=== PATIENT | female | born 1995 | race African-American/Black ===

== ENCOUNTER 2023-04-22 09:29 | Outpatient (REF) | payer OTHER, SELFPAY ==
[2023-04-22 11:29] LABS: Appearance Urine Clear; Color Urine Yellow; Glucose Urine UA Negative (Negative); Leukocyte Esterase Urine Small (1+) (Negative); Nitrite Urine Negative (Negative); PH 8.5 (5.0-9.0); Specific Gravity - Urine 1.015 (1.005-1.025); UMIC TRIGGER UACC YES; Urine Blood Negative (Negative); Urine Ketones Negative (Negative); Urine Protein Trace mg/dL (Neg-Trace)
[2023-04-22 11:31] LABS: MANUAL DIFF FLAG NO
[2023-04-22 11:44] LABS: Basophils Percent Auto 0.1 % (0-2); Eosinophils Absolute Auto 0.2 X10*3/uL (0.0-0.4); Eosinophils Percent Auto 1.5 % (0-4); Hematocrit 29.9 % (37.0-47.0); Hemoglobin 9.5 g/dl (12.0-16.0); Imm Gran Abs Auto 0.06 X10*3/uL (0.00-0.03); Imm Gran Pct Auto 0.5 % (0.0-0.4); Lymphocytes Absolute Auto 1.5 X10*3/uL (1.2-4.9); Lymphocytes Percent Auto 13.6 % (20-40); Mean Corpuscular HGB Conc 31.8 g/dl (31.0-35.0); Mean Corpuscular Hemoglobin 27.5 pg (27.0-33.0); Mean Corpuscular Volume 86.4 fL (80.0-98.0); Mean Platelet Volume 11.1 fL (9.4-12.3); Monocytes Absolute Auto 0.5 X10*3/uL (0.1-1.2); Monocytes Percent Auto 4.3 % (2-11); Neutrophils Absolute Auto 8.8 x10*3/uL (2.0-8.3); Platelet Count 213 X10*3/uL (160-400); Red Blood Count 3.46 X10*6/uL (4.20-5.50); Red Cell Distribution Width 12.9 % (11.0-16.0)
[2023-04-22 11:51] LABS: Bacteria Urine None Seen (None Seen); Hyaline Casts Urine 0-2 /LPF (0-2); RBC Urine 0-2 /HPF (0-2); Squamous Epithelial Cell Urine >20 /HPF (0-2); UACC Culture Trigger YES; WBC Urine 0-5 /HPF (0-5)
[2023-04-22 12:21] LABS: Alanine Aminotransferase 10 U/L (0-31); Alkaline Phosphatase 115 U/L (39-117); Anion Gap 13 (12-20); Aspartate Amino Transferase 15 U/L (5-31); Bilirubin Total 0.3 mg/dL (0.0-1.0); Blood Urea Nitrogen 6 mg/dL (9-16); Calcium 8.4 mg/dL (8.4-10.2); Carbon Dioxide 21 mmol/L (22-29); Chloride 107 mmol/L (96-108); Cholesterol 234 mg/dL; Estimated Glomerular Filt Rate > 60; Glucose Fasting 76 mg/dL (60-99); HDL Cholesterol 63 mg/dL; LDL Cholesterol Calculated 140 mg/dl; Potassium 3.8 mmol/L (3.3-5.1); Sodium 137 mmol/L (135-145); Total Protein 6.4 g/dL (6.5-8.0); Triglycerides 157 mg/dL
[2023-04-22 12:27] LABS: TSH reflex Free T4 0.57 uIU/mL (0.32-4.0)
== END 2023-04-22 09:30 | disposition home or self-care (01) ==
LOC: HO.HMGCLDS 09:29
PROVIDERS: PCP Nurse Practitioner Family; Visit Provider Nurse Practitioner Family
DX: Z00.00 Encounter for general adult medical examination without abnormal findings (principal); O26.899 Other specified pregnancy related conditions, unspecified trimester; R82.90 Unspecified abnormal findings in urine
CPT/HCPCS: 36415; 80053; 80061; 81001; 84443; 85025; 87086

== ENCOUNTER 2024-02-25 16:36 | Outpatient (AMB) | payer OTHER, SELFPAY ==
--- NOTE | 2024-02-25 16:41 | A.OFFPC_ITS ---
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 Accompanied by: Self / Same As Patient Allergies Seasonal Allergies Allergy (Mild, Verified 02/25/24 16:51) Sneezing Medication List - Last Reconciled 02/25/24 by Philly Sunshine CNP ferrous sulfate 325 mg PO DAILY Tobacco use date assessed: 02/25/24 Dental Screening Dental Screen Date: 02/25/24 Did you have a dental visit in the last 12 months?: No Did you have a dental problem in the last 6 months where you did not have access to dental care?: No Was dental information given to patient?: Patient has dentist HPI HPI Comments History of Present Illness Details 28-year-old female presents with complai nts of constant pain to both knees for the past 1 weeks. Her pain has been refractory to Aleve, Advil, extra strength tylenol, cold/warm compresses. Her pain intensifies from a sitting to standing position, with prolonged standing, and climbing up and down stairs; improves with walking. She denies fall, injury, or trauma. [facility] Medical History Eczema Sinusitis Surgical History History of nevus excision Family History Father Diabetes Maternal Grandmother Asthma Family/Other Breast cancer Social History (Updated 02/25/24 @ 16:50 by AMILCAR Daniels) Household Members: Family Both parents involved: No Caregiver staying overnight: No Housing: House Are you a primary healthcare architect to a significant other at home: No Do you presently have visiting nurse or other home services: No 75 years or older and lives alone: No Patient Tobacco Use Status: Never used Tobacco e-Cigarette/Vaping Use: Never Used Second Hand Smoke Exposure: No service: No Current occupational status: employed Current occupation: [employer] Cognitive needs: No Hearing needs: No Vision needs: No Questionnaire Thrive Questionnaire Date Thrive assessed: 03/27/23 SOPHIA-7 AMB Questionnaire SOPHIA-7 Date SOPHIA - 7 assessed: 03/27/23 Source: Developed by Drs. Ibrahima Jose, Holley Mccloud, Leif Xiao and colleagues, with an educational yan from [employer]. Review of Systems Const Details: Const Denies chills, Denies fatigue, Denies fever(s), Denies headache(s) and Denies weakness ENT Denies dizziness and Denies headache(s) Card Denies chest pain, Denies lightheadedness, Denies dyspnea and Denies other (Pal pitations) Resp Denies cough, Denies dyspnea, Denies wheezing and Denies other ( shortness of breath) GI Denies abdominal pain, Denies melena, Denies hematochezia, Denies change in bowel habits, Denies dyspepsia and Denies nausea Denies hematuria and Denies dysuria Musc Denies abnormal gait, Denies myalgias, Denies arthralgias, Denies numbness and Denies tingling Skin/Breast Denies rash, Denies unusual bruising and Denies wounds Neuro Denies abnormal gait, Denies dizziness, Denies headache(s), Denies memory loss, Denies numbness, Denies Sensory deficit (Neuro), Denies tingling and Denies weakness Psych Denies anxiety, Denies depression, Denies memory loss Endo Denies cold intolerance, Denies fatigue, Denies heat intolerance, Denies polydipsia and Denies polyuria Aller/Immun Denies wheezing Physical exam (Primary Care) Vital Signs: Last Vital Signs Temp 97.3 F 02/25/24 16:42 Pulse 86 02/25/24 16:42 Resp 13 02/25/24 16:42 BP 104/70 02/25/24 16:42 Pulse Ox 99 02/25/24 16:42 Oxygen Delivery Method Room Air 02/25/24 16:42 BMI result Body Mass Index 32.9 Tobacco/Smoking Status: Tobacco use Status Tobacco use date assessed 02/25/24 02/25/24 16:50 Patient Tobacco Use Status Never used Tobacco 02/25/24 16:50 e-Cigarette/Vaping Use Never Used 02/25/24 16:50 Thrive Assessment: Date of Thrive Assessment Date Thrive assessed 03/27/23 02/25/24 16:41 Const Other: General: no acute distress and well developed Nutritional Appearance: well nourished Orientation/consciousness: patient oriented x3 [facility] Head: Yes normocephalic and Yes atraumatic Eyes General: appearance normal, both eyes and all related structures Pupils: Equal, round and reactive pupils present EOM: EOMs intact bilaterally Resp Effort & Inspection: normal respiratory effort Auscultation: clear to auscultation bilaterally Cardio Rate: regular rate Rhythm: regular rhythm Heart sounds: S1 normal heart sound present, S2 normal heart sound present, no gallops, no murmurs and no rubs GI Palpation (GI): No Abdominal aortic bruit present, Soft to palpation, nontender, No hepatosplenomegaly present and No Rebound tenderness present Auscultation: normal bowel sounds General: Yes no CVA tenderness Back/Spine/Pelvis Back: no CVA tenderness Cervical Spine: cervical ROM normal and No Cervical spine tenderness Thoracic/Lumbar Spine: thoraco-lumbar ROM normal, No pain with thoraco-lumbar ROM, No thoracic spinal tenderness and No lumbar spinal tenderness Extrem General: Yes normal to inspection, No edema and No calf tenderness Skin General: warm and dry. Normal skin color. Normal skin turgor Neuro General: patient oriented x3, gait normal and no focal neuro deficit Cranial nerves: Yes Equal, round and reactive pupils present Cognition (Neuro): normal cognition Gait exam (Neuro): Normal gait present Sensory Exam: No Sensory deficit (Neuro) Psych Appearance: grossly normal Affect: normal affect Attitude: cooperative Thought process: Normal thought process present Assessment and Plan Assessment & Plan (1) Bilateral knee pain: Code(s): M25.561 - Pain in right knee; M25.562 - Pain in left knee Plan: Reports constant bilateral sore and achy knee pain to both knees. Intensifies pharmacy in to standing position, with prolonged standing, and climbing up and down stairs; improves with walking Normal ROM of both knees. No tenderness to palpation. No erythema, edema or overt injury or trauma Likely tendinitis or arthritis X-ray ordered Meloxicam 15 mg daily ordered. Advised to take as prescribed with food. Instructed on the risks, benefits, and potential adverse reactions of the medication Follow-up with PCP as planned or return sooner with worsening or new symptoms Verbalized understanding and agreed with treatment plan (2) Laboratory tests ordered as part of a complete physical exam (CPE): Code(s): Z00.00 - Encounter for general adult medical examination without abnormal findings Plan: Fasting labs ordered in preparation of a complete physical exam. Advised to fast for at least 10 hours before getting labs drawn. May drink water Verbalized understanding and agreed with treatment plan. Orders: Orders Complete Blood Count Auto Diff Today Z00.00 - Encounter for general adult medical examination without abnormal findings UA CC w/rflx Micro + Cult Today Z00.00 - Encounter for general adult medical examination without abnormal findings XR knee RT 2V Today M25.561 - Pain in right knee, M25.562 - Pain in left knee Comprehensive [place]. Panel Fast Today Z00.00 - Encounter for general adult medical examination without abnormal findings Lipid Panel Today Z00.00 - Encounter for general adult medical examination without abnormal findings TSH reflex Free T4 Today Z00.00 - Encounter for general adult medical examination without abnormal findings XR knee LT 2V Today M25.561 - Pain in right knee, M25.562 - Pain in left knee Medications: New meloxicam 15 mg PO DAILY 2 weeks 14 tabs 0RF Coding Level of Care Code Est Pt Level 4 (90275) Complex EM visit Add On G2211 Diagnoses Bilateral knee pain M25.561; M25.562 Laboratory tests ordered as part of a complete physical exam (CPE) Z00.00
[2024-02-25 16:42] VITALS: BP 104/70; PULSE 86; RESP 13; TEMP 36.3; O2SAT 99; BMI 32.9
== END 2024-02-25 17:10 | disposition home or self-care (01) ==
PROVIDERS: PCP Nurse Practitioner Family; Visit Provider Nurse Practitioner Family
DX: M25.561 Pain in right knee (principal); M25.562 Pain in left knee; Z00.00 Encounter for general adult medical examination without abnormal findings
CPT/HCPCS: 99214; G2211

== ENCOUNTER 2024-02-29 09:38 | Outpatient (REF) | payer OTHER, SELFPAY ==
--- NOTE | ~2024-02-29 | XR_ITS ---
EXAMINATION: XR BILATERAL KNEES CLINICAL INFORMATION: Reason for Exam M25.561 - Pain in right knee COMPARISON: None TECHNIQUE: 2 views of the bilateral knees FINDINGS: RIGHT KNEE: No acute fracture or dislocation. Joint spaces are maintained. No joint effusion. Soft tissues are unremarkable. LEFT KNEE: No acute fracture or dislocation. Joint spaces are maintained. No joint effusion. Soft tissues are unremarkable. XR/XR knee LT 2V IMPRESSION: * No acute osseous abnormality.
--- NOTE | ~2024-02-29 | XR_ITS ---
EXAMINATION: XR BILATERAL KNEES CLINICAL INFORMATION: Reason for Exam M25.561 - Pain in right knee COMPARISON: None TECHNIQUE: 2 views of the bilateral knees FINDINGS: RIGHT KNEE: No acute fracture or dislocation. Joint spaces are maintained. No joint effusion. Soft tissues are unremarkable. LEFT KNEE: No acute fracture or dislocation. Joint spaces are maintained. No joint effusion. Soft tissues are unremarkable. XR/XR knee RT 2V IMPRESSION: * No acute osseous abnormality.
== END 2024-02-29 09:39 | disposition home or self-care (01) ==
LOC: HO.HMGCX 09:38
PROVIDERS: PCP Nurse Practitioner Family; Visit Provider Nurse Practitioner Family
DX: M25.562 Pain in left knee (principal); M25.561 Pain in right knee
CPT/HCPCS: 73560

== ENCOUNTER 2024-05-05 10:33 | Outpatient (AMB) | payer OTHER, SELFPAY ==
--- NOTE | 2024-05-05 10:36 | A.OFFPC_ITS ---
Vital Signs 05/05/24 10:45 Height 5 ft 7 in Weight 214 lb 6 oz BMI 33.6 BP 120/72 Blood Pressure Location Rt brachial Position Sitting Respiration 20 Pulse 81 Pulse Source Pulse Oximeter Temp 97.7 F Temp Source Temporal Artery Scan Pulse Oximetry (%) 98 Oxygen Delivery Method Room Air Intake Visit Reasons: CPE Intake Note: patient here for CPE. 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 Is last menstrual period known: Yes Last menstrual period: 04/28/24 Post menopausal: No Patient : No Allergies Seasonal Allergies Allergy (Mild, Verified 05/05/24 10:59) Sneezing Medication List - Last Reconciled 05/05/24 by Philly Sunshine CNP ferrous sulfate 325 mg PO DAILY Tobacco use date assessed: 05/05/24 Dental Screening Dental Screen Date: 05/05/24 Did you have a dental visit in the last 12 months?: Yes Did you have a dental problem in the last 6 months where you did not have access to dental care?: No Was dental information given to patient?: Patient has dentist HPI HPI Comments History of Present Illness Details 28-year-old female presents for an exten ded physical examd. She has past medical history significant for hyperlipidemia. She offers no complaints and denies acute symptoms at this time. She continues to experience intermittent bilateral knees discomfort, especially with going up and down stairs. Her symptoms are improving. Tylenol and Advil do not provide much relief. Recent xray of both knees were unremarkable. She gave to a girl last May. She states that she sees a therapist every other week to discuss personal and family issues. She denies anxiety or depressive symptoms Last Pap smear test was with [facility] this year: h/o of benign abnormal cells. [facility] Medical History Eczema Sinusitis Surgical History History of nevus excision Family History Father Diabetes Maternal Grandmother Asthma Family/Other Breast cancer Social History (Updated 02/25/24 @ 16:50 by AMILCAR Daniels) Household Members: Family Both parents involved: No Caregiver staying overnight: No Housing: House Are you a primary manager medicare to a significant other at home: No Do you presently have visiting nurse or other home services: No 75 years or older and lives alone: No Patient Tobacco Use Status: Never used Tobacco e-Cigarette/Vaping Use: Never Used Second Hand Smoke Exposure: No service: No Current occupational status: employed Current occupation: [employer] Current occupational exposures/hazards: No Cognitive needs: No Hearing needs: No Vision needs: No Female Reproductive History Menstrual Date of last menstrual period: 04/28/24 Questionnaire PHQ-9 Over the last 2 weeks, how often have you been bothered by any of the following problems? 1. Little interest or pleasure in doing things: not at all 2. Feeling down, depressed, or hopeless: not at all 3. Trouble falling or staying asleep, or sleeping too much: not at all 4. Feeling tired or having little energy: not at all 5. Poor appetite or overeating: not at all 6. Feeling bad about yourself - or that you are a failure or have let yourself or your family down: not at all 7. Trouble concentrating on things, such as reading the newspaper or watching television: not at all 8. Moving or speaking so slowly that other people could have noticed. Or the opposite - being so fidgety or restless that you have been moving around a lot more than usual: not at all 9. Thoughts that you would be better off or of hurting yourself in some way: not at all Total score: 0 Depression Screening Interpretation: Negative Depression Screening Done: Yes 76222 - PHQ-9 Billing: Yes Source: Developed by Drs. Ibrahima Jose, Holley Mccloud, Leif Xiao and colleagues, with an educational yan from [employer]. Thrive Questionnaire Date Thrive assessed: 05/05/24 I am a: Patient What is your living situation today?: I have a steady place to live Within the past 12 months, did the food you bought not last and you didn't have the money to get more?: Never true Within the past 12 months, did you worry whether your food would run out before you got money to buy more?: Never true Do you have trouble paying for medicines?: No Do you have trouble getting transportation to medical appointments?: No Do you have trouble paying your heating and electricity bill?: No Do you have trouble taking care of your child, family member or friend?: No Do you have trouble with day-to-day activities such as bathing, preparing meals, shopping, managing finances, etc.?: No Are you currently unemployed and looking for a job?: No Are you interested in more education?: No Please select the resources that you would like help with: None Currently or been in a relationship where the following occur: No concerns reported THRIVE Score: 0 AUDIT C Alcohol Use Questionnaire (AUDIT-C) 1. How often do you have a drink containing alcohol?: Monthly or less 2. How many drinks containing alcohol do you have on a typical day when you are drinking?: 1 or 2 3. How often do you have six or more drinks on one occasion?: Never Total Score: 1 SOPHIA-7 AMB Questionnaire SOPHIA-7 Date SOPHIA - 7 assessed: 05/05/24 Feeling nervous, anxious, or on edge: 2 = More than half the days Not being able to stop or control worryin = Several days Worrying too much about different things: 2 = More than half the days Trouble relaxin = More than half the days Being so restless that it is hard to sit still: 2 = More than half the days Becoming easily annoyed or irritable: 3 = Nearly every day Feeling afraid as if something awful might happen: 2 = More than half the days Total SOPHIA-7 score (0-4 normal; 5-9 mild; 10-14 moderate; 15-21 severe): 14 Source: Developed by Drs. Ibrahima Jose, Holley Mccloud, Leif Xiao and colleagues, with an educational yan from [employer]. SOPHIA-7 Assessment Billing SOPHIA-7 Assessment Tool: SOPHIA-7 Assessment 58203 Review of Systems Const Details: Denies chills, Denies fatigue, Denies fever(s), Denies headache(s) and Denies weakness HEENT Denies change in vision, Denies dizziness, Denies headache(s), Denies hearing loss, Denies nasal congestion, Denies sinus pain, Denies sinus pressure and Denies sore throat Card Denies chest pain, Denies lightheadedness, Denies dyspnea and Denies other (palpitations) Resp Denies cough, Denies dyspnea and Denies wheezing GI Denies abdominal pain, Denies melena, Denies hematochezia, Denies change in bowel habits, Denies dyspepsia and Denies nausea Denies hematuria and Denies dysuria Musc Denies abnormal gait, Denies myalgias, Denies arthralgias, Denies numbness and Denies tingling Skin/Breast Denies rash, Denies unusual bruising and Denies wounds Neuro Denies abnormal gait, Denies dizziness, Denies headache(s), Denies memory loss, Denies numbness, Denies Sensory deficit (Neuro), Denies tingling and Denies weakness Psych Denies anxiety, Denies depression and Denies memory loss Endo Denies cold intolerance, Denies fatigue, Denies heat intolerance, Denies polydipsia and Denies polyuria Omar/Lymph Denies easy bleeding and Denies easy bruising Aller/Immun Denies wheezing Physical exam (Primary Care) Vital Signs: Last Vital Signs Temp 97.7 F 05/05/24 10:45 Pulse 81 05/05/24 10:45 Resp 20 05/05/24 10:45 BP 120/72 05/05/24 10:45 Pulse Ox 98 05/05/24 10:45 Oxygen Delivery Method Room Air 05/05/24 10:45 BMI result Body Mass Index 33.6 Tobacco/Smoking Status: Tobacco use Status Tobacco use date assessed 05/05/24 05/05/24 10:44 Patient Tobacco Use Status Never used Tobacco 05/05/24 10:39 e-Cigarette/Vaping Use Never Used 05/05/24 10:39 PHQ-9: PHQ-9 Score PHQ-9: Total score 0 05/05/24 10:54 Depression Screening Interpretation: Negative Thrive Assessment: Date of Thrive Assessment Date Thrive assessed 05/05/24 05/05/24 10:54 Currently or been in a relationship where the following occur: No concerns reported Const Other: General: no acute distress, well developed, alert and awake Nutritional Appearance: well nourished Orientation/consciousness: patient oriented x3 HEN[facility] Head: Yes normocephalic and Yes atraumatic Ears: hearing grossly normal bilaterally and TM's normal bilaterally General nose exam: Normal external nose present and Normal nares present Mouth: Normal oral and palatal mucosa present and moist mucous membranes Teeth and gingiva: dentition normal Throat: Yes oropharynx normal Eyes Pupils: Equal, round and reactive pupils present and Pupil accommodation reflex normal EOM: EOMs intact bilaterally Neck Neck: Yes normal visual inspection, Yes no lymphadenopathy and Yes trachea midline Thyroid: Thyroid normal Carotids: no bruits Lymphatic: no lymphadenopathy noted Chest Chest palpation & inspection: normal inspection of the chest Resp Effort & Inspection: normal respiratory effort Auscultation: clear to auscultation bilaterally Cardio Rate: regular rate Rhythm: regular rhythm Heart sounds: S1 normal heart sound present, S2 normal heart sound present, no gallops, no murmurs and no rubs Bruits: no abdominal aortic bruits and no carotid bruits GI Palpation (GI): No Abdominal aortic bruit present, Soft to palpation, nontender, No hepatosplenomegaly present and No Rebound tenderness present Auscultation: normal bowel sounds General: Yes no CVA tenderness Back/Spine/Pelvis Back: no CVA tenderness Cervical Spine: cervical ROM normal and No Cervical spine tenderness Thoracic/Lumbar Spine: thoraco-lumbar ROM normal, No pain with thoraco-lumbar ROM, No thoracic spinal tenderness and No lumbar spinal tenderness Skin General: warm and dry. Normal skin color. Normal skin turgor Lesions: no lesions Rashes: no rashes Trauma: no lacerations or abrasions Wounds: no wounds Nails: normal Neuro General: patient oriented x3, gait normal and CN's II-XI intact bilaterally Cranial nerves: Yes Equal, round and reactive pupils present Cognition (Neuro): normal cognition Gait exam (Neuro): Normal gait present Motor exam (neuro): 5/5 motor strength present throughout Sensory Exam: No Sensory deficit (Neuro) Deep tendon reflexes (DTR's): Right patellar reflex intensity grade: 2+ and Left patellar reflex intensity grade: 2+ Extrem General: Yes normal to inspection, No edema and No calf tenderness Psych Appearance: grossly normal Affect: normal affect Attitude: cooperative Thought process: Normal thought process present Assessment and Plan Assessment & Plan (1) Normal physical examination, routine: Code(s): Z00.00 - Encounter for general adult medical examination without abnormal findings Plan: No significant physical restrictions or limitations noted Continue current treatment regimen Healthy diet and routine exercise encouraged Continue follow-up with therapist as planned Advised to get urinalysis and fasting blood work done and follow-up for a telehealth visit in 2-3 weeks for labs review Return sooner with symptoms or concerns Verbalized understanding and agreed with treatment plan (2) Hyperlipidemia: Code(s): E78.5 - Hyperlipidemia, unspecified Plan: History of slightly elevated triglyceride, total cholesterol, and LDL levels. She has never been on medication treatment Advised to limit foods high in saturated fat and avoid foods high in trans fat Routine exercise encouraged Will recheck lipid levels and make changes as needed Verbalized understanding and agreed with the treatment plan (3) Iron deficiency anemia: Code(s): D50.9 - Iron deficiency anemia, unspecified Plan: Ferrous sulfate as prescribe Will check CBC and iron studies and make changes as needed (4) Obesity (BMI 30-39.9): Code(s): E66.9 - Obesity, unspecified Plan: She currently weighs 214 lb, BMI is 33.6 Healthy diet and routine exercise encouraged Referred to a dietitian as requested (5) Bilateral knee pain: Code(s): M25.561 - Pain in right knee; M25.562 - Pain in left knee Plan: Intermittent discomfort to both knees, especially with climbing up and down stairs Recent xray was unremarkable Weight management encouraged May take Tylenol or Ibuprofen for pain or discomfort Warm or cold compresses encouraged Referred to PT Follow up with worsening or new symptoms Verbalized understanding and agreed with the plan (6) Laboratory tests ordered as part of a complete physical exam (CPE): Code(s): Z00.00 - Encounter for general adult medical examination without abnormal findings Plan: Fasting labs ordered as part of a complete physical exam. Advised to fast for at least 10 hours before getting labs drawn. May drink water Verbalized understanding and agreed with treatment plan. Orders: Orders PT Evaluation and Treatment Today M25.561 - Pain in right knee, M25.562 - Pain in left knee IRON PROFILE Today D50.9 - Iron deficiency anemia, unspecified Ferritin Today D50.9 - Iron deficiency anemia, unspecified Referrals Nutrition/Dietitian Referral E66.9 - Obesity, unspecified Coding Level of Care Code New Pt Level 4 (82705) Est Pt Prev Care 18-39y(44012) Diagnoses Normal physical examination, routine Z00.00 Hyperlipidemia E78.5 Iron deficiency anemia D50.9 Obesity (BMI 30-39.9) E66.9 Bilateral knee pain M25.561; M25.562 Laboratory tests ordered as part of a complete physical exam (CPE) Z00.00 Additional Codes SOPHIA-7 Assessment Billing - SOPHIA-7 Assessment Tool: SOPHIA-7 Assessment [id number] ([id number])
[2024-05-05 10:45] VITALS: BP 120/72; PULSE 81; RESP 20; TEMP 36.5; O2SAT 98; BMI 33.6
== END 2024-05-05 11:29 | disposition home or self-care (01) ==
PROVIDERS: PCP Nurse Practitioner Family; Visit Provider Nurse Practitioner Family
DX: Z00.00 Encounter for general adult medical examination without abnormal findings (principal); M25.561 Pain in right knee; M25.562 Pain in left knee; Z68.33 Body mass index [BMI] 33.0-33.9, adult; E78.5 Hyperlipidemia, unspecified; E66.9 Obesity, unspecified; D50.9 Iron deficiency anemia, unspecified
CPT/HCPCS: 99213; 99395

== ENCOUNTER 2024-05-18 09:51 | Outpatient (AMB) | payer OTHER, SELFPAY ==
--- NOTE | 2024-05-18 10:13 | MHC.AMNUTRGE ---
VS Expanded 05/18/24 10:14 05/18/24 10:20 Height 5 ft 7 in 5 ft 7 in Weight 217 lb 6.012 oz 217 lb BMI 34.0 34.0 Intake Visit Reasons: Obesity/CONFIRMED Allergies Seasonal Allergies Allergy (Mild, Verified 05/05/24 10:59) Sneezing Nutrition Presentation Details: Pt presents for MNT for obesity. Pt was referred by PCP, Prieto Ramírez Pt reports having gained weight post , related to lack of meal planning , skipping meals Pt weighed 198 lbs prior to , a year ago BS Monitoring Most Recent Diabetes Results: Cholesterol 234 mg/dL 04/22/23 HDL Cholesterol 63 mg/dL 04/22/23 Triglycerides 157 mg/dL 04/22/23 Creatinine 0.58 mg/dL (0.5-1.4) 04/22/23 Blood Urea Nitrogen 6 mg/dL (9-16) L 04/22/23 Sodium 137 mmol/L (135-145) 04/22/23 Potassium 3.8 mmol/L (3.3-5.1) 04/22/23 Chloride 107 mmol/L (96-108) 04/22/23 Carbon Dioxide 21 mmol/L (22-29) L 04/22/23 Calcium 8.4 mg/dL (8.4-10.2) 04/22/23 AST 15 U/L (5-31) 04/22/23 ALT 10 U/L (0-31) 04/22/23 Total Protein 6.4 g/dL (6.5-8.0) L 04/22/23 Albumin 3.0 g/dL (3.5-5.0) L 04/22/23 OKD-Pxhpmdm-Tl.Jeor Equation Height: 5 ft 7 in Weight: 217 lb Resting Metabolic Rate: 1738.34 Calculated Activity Level: Sedentary Calories Needed to Maintain Weight: 2086.01 Diagnosis Nutrition problem #1: food nutri know defi As related to (etiology) #1: diagnosis As evidenced by (sign/symptom) #1: knowledge deficit of diet [facility] Medical History Eczema Sinusitis Surgical History History of nevus excision Family History Father Diabetes Maternal Grandmother Asthma Family/Other Breast cancer Social History (Updated 02/25/24 @ 16:50 by AMILCAR Daniels) Household Members: Family Housing: House Are you a primary career and technology education teacher to a significant other at home: No Do you presently have visiting nurse or other home services: No Patient Tobacco Use Status: Never used Tobacco e-Cigarette/Vaping Use: Never Used Second Hand Smoke Exposure: No service: No Current occupational status: employed Current occupation: Sensser Current occupational exposures/hazards: No Cognitive needs: No Hearing needs: No Vision needs: No Assessment & Plan Assessment & Plan (1) Obesity (BMI 30-39.9): Code(s): E66.9 - Obesity, unspecified Category: Medical Plan: Wt: 99 Kg ( 04/2024 ) Est kcal needs as per MSJ: 2100 (40% carb, 30% protein/fat) Est fluid needs as per 25-30 ml/d: 3000 Est prot per day as per 1 g/kg bw: 100 Recommend fiber intake : 8-10 g per day and gradually increase to 25-28 g per day for women and 35-38 g for men or as tolerated Recommend sodium intake per day : less than 1500 mg less than 2000 mg Educated patient on: ( R = reviewed V = verbalizes understanding N/R = needs review N/A = not applicable Food sources of carbohydrate, adequate serving sizes and its role in various health conditions: R V N/R Differences between complex carbohydrates a simple carbohydrates, role of fiber in diet: R V N/R Lean protein sources of foods: R Differences between types of fats and role in diet (mono on saturated fat fatty acids, saturated fatty acids, trans fats): R V N/R Food sources of sodium in salt and healthy modifications for heart health in kidney health: R V R/V Vitamins and minerals: R V N/R Healthy plate method concept: R Physical activity: Benefits a precaution: R V N/R Patient Instructions: Work on having 3 meals/day , choose a meal replacement instead of skipping See healthy plate method meal ideas printed Watch on sugar/carbs, Reducing total carbs to 60-75 g or less per meal 3 times /wk and snack 0-20 g carbs Coding Level of Care Code Nutr Indiv Intake (97218) Diagnoses Obesity (BMI 30-39.9) E66.9 Time Spent (min) 30
[2024-05-18 10:14] VITALS: BMI 34.0
[2024-05-21 12:26] VITALS: BMI 34.0
== END 2024-05-18 10:47 | disposition home or self-care (01) ==
PROVIDERS: PCP Nurse Practitioner Family; Visit Provider Dietitian, Registered
DX: E66.9 Obesity, unspecified (principal)

== ENCOUNTER → 2024-05-18 09:51 | Outpatient (BNVA) | payer OTHER, SELFPAY | PROVIDERS: PCP Nurse Practitioner Family; Visit Provider Dietitian, Registered | DX: E66.9 Obesity, unspecified (principal); Z68.34 Body mass index [BMI] 34.0-34.9, adult; Z71.3 Dietary counseling and surveillance | CPT/HCPCS: 97802 ==

== ENCOUNTER 2024-05-21 11:23 | Outpatient (REF) | payer OTHER, SELFPAY ==
[2024-05-21 17:32] LABS: MANUAL DIFF FLAG NO
[2024-05-21 17:33] LABS: Basophils Percent Auto 0.4 % (0-2); Eosinophils Absolute Auto 0.2 X10*3/uL (0.0-0.4); Eosinophils Percent Auto 2.6 % (0-4); Hematocrit 36.5 % (37.0-47.0); Hemoglobin 12.2 g/dl (12.0-16.0); Imm Gran Abs Auto 0.06 X10*3/uL (0.00-0.03); Imm Gran Pct Auto 0.7 % (0.0-0.4); Lymphocytes Absolute Auto 1.8 X10*3/uL (1.2-4.9); Lymphocytes Percent Auto 20.4 % (20-40); Mean Corpuscular HGB Conc 33.4 g/dl (31.0-35.0); Mean Corpuscular Hemoglobin 29.6 pg (27.0-33.0); Mean Corpuscular Volume 88.6 fL (80.0-98.0); Monocytes Absolute Auto 0.4 X10*3/uL (0.1-1.2); Monocytes Percent Auto 4.4 % (2-11); Neutrophils Absolute Auto 6.4 x10*3/uL (2.0-8.3); Neutrophils Percent Auto 71.5 % (45-73); Platelet Count 211 X10*3/uL (160-400); Red Blood Count 4.12 X10*6/uL (4.20-5.50); Red Cell Distribution Width 12.8 % (11.0-16.0); White Blood Count 8.9 X10*3/uL (4.8-10.8)
[2024-05-21 17:37] LABS: Appearance Urine Turbid; Color Urine Yellow; Glucose Urine UA Negative (Negative); Leukocyte Esterase Urine Small (1+) (Negative); Nitrite Urine Negative (Negative); Specific Gravity - Urine 1.025 (1.005-1.025); UMIC TRIGGER UACC YES; Urine Blood Negative (Negative); Urine Ketones Negative (Negative); Urine Protein Negative (Neg-Trace)
[2024-05-21 17:52] LABS: Bacteria Urine Trace (None Seen); Hyaline Casts Urine 0-2 /LPF (0-2); RBC Urine 0-2 /HPF (0-2); UACC Culture Trigger YES; WBC Urine 0-5 /HPF (0-5)
[2024-05-21 17:57] LABS: Alanine Aminotransferase 11 U/L (0-31); Albumin Level 3.8 g/dL (3.5-5.0); Alkaline Phosphatase 68 U/L (39-117); Anion Gap 9 (12-20); Aspartate Amino Transferase 15 U/L (5-31); Bilirubin Total 0.3 mg/dL (0.0-1.0); Blood Urea Nitrogen 11 mg/dL (9-16); Carbon Dioxide 25 mmol/L (22-29); Chloride 110 mmol/L (96-108); Cholesterol 154 mg/dL (<200); Estimated Glomerular Filt Rate > 60; Glucose Fasting 114 mg/dL (60-99); HDL Cholesterol 42 mg/dL (>40); Iron 25 mcg/dL (30-160); LDL Cholesterol Calculated 96 mg/dL (<100); Percent Iron Saturation 10 % (15-50); Potassium 3.7 mmol/L (3.3-5.1); Sodium 140 mmol/L (135-145); Total Iron Binding Capacity 257 mcg/dL (228-428); Triglycerides 81 mg/dL (<150); Unsaturated Iron Binding 232 ug/dL
[2024-05-21 18:14] LABS: Ferritin 31 ng/mL (10-122); TSH reflex Free T4 0.39 uIU/mL (0.32-4.0)
== END 2024-05-21 11:24 | disposition home or self-care (01) ==
LOC: HO.HKASLDS 11:23
PROVIDERS: Visit Provider Nurse Practitioner Family
DX: Z00.00 Encounter for general adult medical examination without abnormal findings (principal); D50.9 Iron deficiency anemia, unspecified
CPT/HCPCS: 36415; 80053; 80061; 81001; 82728; 83540; 84443; 85025; 87086

== ENCOUNTER 2024-05-22 13:34 | Outpatient (AMB) | payer OTHER, SELFPAY ==
--- NOTE | 2024-05-22 13:24 | MHC.PC.OV ---
Intake Visit Reasons: 2-3 wks telehealth labs Intake Note: patient here to follow up on labs Is last menstrual period known: Yes Last menstrual period: 04/28/24 Post menopausal: No Patient : No Allergies Seasonal Allergies Allergy (Mild, Verified 05/22/24 13:33) Sneezing Tobacco use date assessed: 05/22/24 Dental Screening Dental Screen Date: 05/22/24 Did you have a dental visit in the last 12 months?: Yes Did you have a dental problem in the last 6 months where you did not have access to dental care?: No Was dental information given to patient?: Patient has dentist HPI HPI Comments History of Present Illness Details 28 y/o female presents for a telehealth visit for review of recent labs She admits to taking ferrous sulfate 325 mg daily She notes that she recently completed a course of amoxicillin 850mg twice daily x 5 days for URI. She usually develop vaginal yeast infection following such high dose of antibiotic treatment. She notes that she may have vaginal irritation at this time. However, she requests prophylactic treatment [facility] Medical History Eczema Sinusitis Surgical History History of nevus excision Family History Father Diabetes Maternal Grandmother Asthma Family/Other Breast cancer Social History (Updated 02/25/24 @ 16:50 by AMILCAR Daniels) Household Members: Family Housing: House Are you a primary managed care coordinator to a significant other at home: No Do you presently have visiting nurse or other home services: No Patient Tobacco Use Status: Never used Tobacco e-Cigarette/Vaping Use: Never Used Second Hand Smoke Exposure: No service: No Current occupational status: employed Current occupation: [employer] Current occupational exposures/hazards: No Cognitive needs: No Hearing needs: No Vision needs: No Female Reproductive History Menstrual Date of last menstrual period: 04/28/24 Questionnaire Thrive Questionnaire Date Thrive assessed: 05/05/24 SOPHIA-7 AMB Questionnaire SOPHIA-7 Date SOPHIA - 7 assessed: 05/05/24 Source: Developed by Drs. Ibrahima Jose, Holley Mccloud, Leif Xiao and colleagues, with an educational yan from [employer]. Review of Systems Const Details: Const Denies chills, Denies fatigue, Denies fever(s), Denies headache(s) and Denies weakness ENT Denies dizziness and Denies headache(s) Card Denies chest pain, Denies lightheadedness, Denies dyspnea and Denies other (Palpitations) Resp Denies cough, Denies dyspnea, Denies wheezing and Denies other ( shortness of breath) GI Denies abdominal pain, Denies melena, Denies hematochezia, Denies change in bowel habits, Denies dyspepsia and Denies nausea Reports as per HPI Musc Denies abnormal gait, Denies myalgias, Denies arthralgias, Denies numbness and Denies tingling Skin/Breast Denies rash, Denies unusual bruising and Denies wounds Neuro Denies abnormal gait, Denies dizziness, Denies headache(s), Denies memory loss, Denies numbness, Denies Sensory deficit (Neuro), Denies tingling and Denies weakness Psych Denies anxiety, Denies depression, Denies memory loss Endo Denies cold intolerance, Denies fatigue, Denies heat intolerance, Denies polydipsia and Denies polyuria Aller/Immun Denies wheezing Physical exam (Primary Care) Tobacco/Smoking Status: Tobacco use Status Tobacco use date assessed 05/05/24 05/22/24 13:26 Patient Tobacco Use Status Never used Tobacco 05/22/24 13:26 e-Cigarette/Vaping Use Never Used 05/22/24 13:26 Thrive Assessment: Date of Thrive Assessment Date Thrive assessed 05/05/24 05/22/24 13:26 Const Other: Telehealth visit. No physical exam Telehealth Telehealth Telehealth Platform: Telephone Location of provider rendering services: practice address Location of patient: address on file Patient Identification confirmed using: Name, : Yes Telehealth method: voice only Patient verbally consented to treatment: Yes Patient verbally consented to billing insurance company: Yes Patient informed of any privacy concerns related to visit: Yes Assessment and Plan Assessment & Plan (1) Iron deficiency anemia: Code(s): D50.9 - Iron deficiency anemia, unspecified Plan: Recent RBCs near normal, 4.12; H&H and MCV levels are normal, 12.3/36.5 and 88.6 respectively; iron level is low, 25; normal ferritin level Continue to take ferrous sulfate 325 mg daily Will recheck RBC and iron studies. Advised to get blood work done before next visit Follow-up in 2 months or sooner with symptoms or concerns Verbalized understanding and agreed with the treatment plan (2) Hyperlipidemia: Code(s): E78.5 - Hyperlipidemia, unspecified Plan: Recent lipid panel level was normal Advised to limit foods high in saturated fat and avoid foods high in trans fat Routine exercise encouraged Verbalized understanding and agreed with the plan (3) Elevated fasting glucose: Code(s): R73.01 - Impaired fasting glucose Plan: Recent fasting glucose is elevated, 114 She notes that she ate waffles immediately before she had blood work done Will recheck fasting glucose and make changes as needed Advised to fast for 10-12 hours, may drink water only, and get blood work done before her next visit Verbalized understanding and agreed with the plan (4) Vaginal candidiasis: Code(s): B37.31 - Acute candidiasis of vulva and vagina Plan: She notes vaginal irritation following UR treatment with amoxicillin 850 mg twice daily x7 days Fluconazole ordered. Advised to take as prescribed. Instructed on the risks, benefits, and potential adverse reactions of the medication Follow-up with worsening or new symptoms Verbalized understanding and agreed with the treatment plan Orders: Orders Ferritin 2 Months D50.9 - Iron deficiency anemia, unspecified IRON PROFILE 2 Months D50.9 - Iron deficiency anemia, unspecified Complete Blood Count no Diff 2 Months D50.9 - Iron deficiency anemia, unspecified Glucose Fasting Today R73.01 - Impaired fasting glucose Medications: New fluconazole may repeat second dose 72 hrs after first dose if symptoms persist 150 mg PO Q3D 2 tabs 0RF Changed From ferrous sulfate 325 mg PO DAILY To ferrous sulfate 325 mg PO DAILY 30 days 30 tabs 3RF Coding Level of Care Code Tele Est Pt Level 3 (36860) Diagnoses Iron deficiency anemia D50.9 Hyperlipidemia E78.5 Elevated fasting glucose R73.01 Vaginal candidiasis B37.31 Time Spent (min) 20
== END 2024-05-22 13:51 | disposition home or self-care (01) ==
PROVIDERS: PCP Nurse Practitioner Family; Visit Provider Nurse Practitioner Family
DX: D50.9 Iron deficiency anemia, unspecified (principal); E78.5 Hyperlipidemia, unspecified; R73.01 Impaired fasting glucose; B37.31 Acute candidiasis of vulva and vagina
CPT/HCPCS: 99442

== ENCOUNTER 2024-12-22 14:44 | Outpatient (AMB) | payer OTHER, SELFPAY ==
--- NOTE | 2024-12-22 14:45 | A.OFFPC_ITS ---
Vital Signs 12/22/24 14:53 Height 5 ft 7 in Weight 207 lb 4 oz BMI 32.5 BP 116/66 Blood Pressure Location Rt brachial Position Sitting Respiration 16 Pulse 90 Pulse Source Pulse Oximeter Temp 98.4 F Temp Source Oral Pulse Oximetry (%) 97 Oxygen Delivery Method Room Air Intake Visit Reasons: Referral: Derm Intake Note: patient is here requesting Derm. referral Scrum Coach Required: No Is last menstrual period known: Yes Last menstrual period: 12/21/24 Post menopausal: No Patient : No Allergies Seasonal Allergies Allergy (Mild, Verified 12/22/24 15:00) Sneezing Tobacco use date assessed: 12/22/24 Dental Screening Dental Screen Date: 12/22/24 Did you have a dental visit in the last 12 months?: Yes Did you have a dental problem in the last 6 months where you did not have access to dental care?: No Was dental information given to patient?: Patient has dentist HPI HPI Comments History of Present Illness Details 29-year-old female, accompanied by her river barnhart, presents with requests for Dermatology referral for a painless, dark spot to the sole of her left foot. The spot has been present for several years. She had a biopsy of the area by [facility] several years ago which resulted negative. She wants to follow-up with [facility] because the spot is progressively getting darker increasing in size.. No acute symptoms at this time. [facility] Medical History Eczema Sinusitis Surgical History History of nevus excision Family History Father Diabetes Maternal Grandmother Asthma Family/Other Breast cancer Social History (Updated 02/25/24 @ 16:50 by AMILCAR Daniels) Household Members: Family Both parents involved: No Caregiver staying overnight: No Housing: House Are you a primary career and technology education teacher to a significant other at home: No Do you presently have visiting nurse or other home services: No 75 years or older and lives alone: No Patient Tobacco Use Status: Never used Tobacco e-Cigarette/Vaping Use: Never Used Second Hand Smoke Exposure: No service: No Current occupational status: employed Current occupation: [employer] Current occupational exposures/hazards: No Cognitive needs: No Hearing needs: No Vision needs: No Female Reproductive History Menstrual Date of last menstrual period: 12/21/24 Questionnaire Thrive Questionnaire Date Thrive assessed: 05/05/24 SOPHIA-7 AMB Questionnaire SOPHIA-7 Date SOPHIA - 7 assessed: 05/05/24 Source: Developed by Drs. Ibrahima Jose, Holley Mccloud, Leif Xiao and colleagues, with an educational yan from [employer]. Review of Systems Const Details: Const Denies chills, Denies fatigue, Denies fever(s), Denies headache(s) and Denies weakness ENT Denies dizziness and Denies headache(s) Card Denies chest pain, Denies lightheadedness, Denies dyspnea and Denies other (Palp itations) Resp Denies cough, Denies dyspnea, Denies wheezing and Denies other ( shortness of breath) GI Denies abdominal pain, Denies melena, Denies hematochezia, Denies change in bowel habits, Denies dyspepsia and Denies nausea Denies hematuria and Denies dysuria Musc Denies abnormal gait, Denies myalgias, Denies arthralgias, Denies numbness and Denies tingling Skin/Breast Reports as per HPI Neuro Denies abnormal gait, Denies dizziness, Denies headache(s), Denies memory loss, Denies numbness, Denies Sensory deficit (Neuro), Denies tingling and Denies weakness Psych Denies anxiety, Denies depression, Denies memory loss Endo Denies cold intolerance, Denies fatigue, Denies heat intolerance, Denies polydipsia and Denies polyuria Aller/Immun Denies wheezing Physical exam (Primary Care) Vital Signs: Last Vital Signs Temp 98.4 F 12/22/24 14:53 Pulse 90 12/22/24 14:53 Resp 16 12/22/24 14:53 BP 116/66 12/22/24 14:53 Pulse Ox 97 12/22/24 14:53 Oxygen Delivery Method Room Air 12/22/24 14:53 BMI result Body Mass Index 32.5 Tobacco/Smoking Status: Tobacco use Status Tobacco use date assessed 12/22/24 12/22/24 14:56 Patient Tobacco Use Status Never used Tobacco 12/22/24 14:47 e-Cigarette/Vaping Use Never Used 12/22/24 14:47 Thrive Assessment: Date of Thrive Assessment Date Thrive assessed 05/05/24 12/22/24 14:47 Const Other: General: no acute distress and well developed Nutritional Appearance: well nourished Orientation/consciousness: patient oriented x3 [facility] Head: Yes normocephalic and Yes atraumatic Eyes General: appearance normal, both eyes and all related structures Pupils: Equal, round and reactive pupils present EOM: EOMs intact bilaterally Resp Effort & Inspection: normal respiratory effort Auscultation: clear to auscultation bilaterally Cardio Rate: regular rate Rhythm: regular rhythm Heart sounds: S1 normal heart sound present, S2 normal heart sound present, no gallops, no murmurs and no rubs GI Palpation (GI): No Abdominal aortic bruit present, Soft to palpation, nontender, No hepatosplenomegaly present and No Rebound tenderness present Auscultation: normal bowel sounds General: Yes no CVA tenderness Back/Spine/Pelvis Back: no CVA tenderness Cervical Spine: cervical ROM normal and No Cervical spine tenderness Thoracic/Lumbar Spine: thoraco-lumbar ROM normal, No pain with thoraco-lumbar ROM, No thoracic spinal tenderness and No lumbar spinal tenderness Extrem General: Yes normal to inspection, No edema and No calf tenderness Skin General: warm and dry. Normal skin color. Normal skin turgor Lesions: Approximately 0.4 cm, oval, dark brown discoloration to the left heel, skin is soft, no thickening or tenderness Rashes: no rashes Trauma: no lacerations or abrasions Wounds: no wounds Nails: normal Neuro General: patient oriented x3, gait normal and no focal neuro deficit Cranial nerves: Yes Equal, round and reactive pupils present Cognition (Neuro): normal cognition Gait exam (Neuro): Normal gait present Sensory Exam: No Sensory deficit (Neuro) Psych Appearance: grossly normal Affect: normal affect Attitude: cooperative Thought process: Normal thought process present Coding Level of Care Code Est Pt Level 3 (08145) Diagnoses Discoloration of skin of foot L81.9 Assessment & Plan Assessment & Plan (1) Discoloration of skin of foot: Code(s): L81.9 - Disorder of pigmentation, unspecified Category: Medical Plan: Dark spot to the sole the left foot that is progressively getting darker and increasing in size. Approximately 0.4 cm, oval, dark brown discoloration to the left heel, skin is soft, no thickening or tenderness. Referred to [facility] as requested. Encouraged to perform fasting blood work as planned and follow-up for a telehealth visit for labs review. Return sooner with symptoms or concerns. Verbalized understanding and agreed with treatment plan. Orders: Referrals Dermatology Referral L81.9 - Disorder of pigmentation, unspecified
[2024-12-22 14:53] VITALS: BP 116/66; PULSE 90; RESP 16; TEMP 36.9; O2SAT 97; BMI 32.5
--- OUTSIDE RECORDS SUMMARY | 2024-12-22 18:24 | XMS_ITS | Clinical Summary ---
Author Organization [facility] Address [address] [place] [address] Care Team Providers Care Aerospace Manager Name Role Phone Allen Vaughn MD Primary Care Provider [phone] Medical History Medical History Date Comments Chest pain DX:Chest pain Fractured bone DX:Fractured bon e Vitamin D deficiency DX:Vitamin D deficiency Leukocytosis, unspecified type D X:Leukocytosis, unspecified type Adult BMI 30.0-30.9 kg/sq m DX:A dult BMI 30.0-30.9 kg/sq m Cough DX:Cough Anxiety DX:Anxiety Family History Medical History Relation Name Comments Diabetes Father insulin depende nt Stroke Maternal Grandfather Breast cancer Maternal Grandmother Migraines Mother Heart attack Paternal Grandfather @ 45 yr s of age Relation Name Status Comments Father Maternal Grandfather Maternal Grandmother Mother Paternal Grandfather Social History Tobacco Use Types Packs/Day Years Used Date Smoking Tobacco: Never Smokeless Tobacco: Never Alcohol Use Standard Drinks/Week Comments Yes 0 (1 standard drink = 0.6 oz pur e alcohol) Comments Unknown Sex and Gender Information Value Date Recorded Sex Assigned at Not on file Legal Sex Female 10:05 PM EST Gender Identity Not on file Sexual Orientation Not on file Obstetrics History Last Filed Vital Signs Vital Sign Reading Time Taken Comments Blood Pressure 124/70 04/18/2022 12:53 PM EDT Si tting R Arm Pulse 73 04/18/2022 12:53 PM EDT Temperature - - Respiratory Rate - - Oxygen Saturation - - Inhaled Oxygen Concentration - - Weight 88.5 kg (195 lb) 04/27/2022 9:28 AM EDT Height 170.2 cm (5' 7 ) 04/27/2022 9:28 AM EDT Body Mass Index 30.54 04/27/2022 9:28 AM EDT Plan of Treatment Health Maintenance Due Date Last Done Comments DTaP,Tdap,and Td Vaccines (1 - Tdap) 2012 Hepatitis B Vaccines (1 of 3 - 19+ 3-dose series) 2012 Cervical Cancer Screening: P ap Smear 2014 Cholesterol Screening (Lipid Panel) 09/29/2022 Depression Screening 09/29/2022 HIV Screening 09/29/2022 Hepatitis C Screening 09/29/2022 Social Influencers of Health Screening 09/29/2022 COVID-19 Vaccine (1 - 2023-2 5 season) 2024 Influenza Vaccine (#1) 2024 HIB Vaccines Aged Out No longer eligi ble based on patient's age to complete this topic HPV Vaccines Aged Out No longer eligi ble based on patient's age to complete this topic Hepatitis A Vaccines Aged Out No long er eligible based on patient's age to complete this topic IPV Vaccines Aged Out No longer eligi ble based on patient's age to complete this topic MMR Vaccines Aged Out No longer eligi ble based on patient's age to complete this topic Meningococcal ACWY Vaccine Aged Out N o longer eligible based on patient's age to complete this topic Meningococcal B Vacine Aged Out No lo nger eligible based on patient's age to complete this topic Pneumococcal Vaccine: Pediat rics (0 to 5 Years) and At-Risk Patients (6 to 64 Years) Aged Out No longer eligible b ased on patient's age to complete this topic RSV Immunization Patients Un lian 20 months Aged Out No longer eligible b ased on patient's age to complete this topic Varicella Vaccines Aged Out No longer eligible based on patient's age to complete this topic Advance Directives Documents on File Type Date Recorded Patient Power Plant Technician Expl anation Health Care Decision (hx) 07/13/2024 AD WILBURN DIRECTIVE Health Care Decision (hx) 07/01/2024 HE ALTH CARE PROXY Care Teams Aerospace Manager Relationship Specialty Start Date End Date Allen Vaughn MD PCP - General Internal Medicine 04/18/22
== END 2024-12-22 15:10 | disposition home or self-care (01) ==
LOC: HO.HMCFM 14:44
PROVIDERS: PCP Nurse Practitioner Family; Visit Provider Nurse Practitioner Family
DX: L81.9 Disorder of pigmentation, unspecified (principal)